=== PATIENT | female | born 1955 | race Caucasian/White ===

== ENCOUNTER 2021-05-28 12:56 | Outpatient (REF) | payer OTHER, SELFPAY ==
--- NOTE | ~2021-05-28 | MM_ITS ---
EXAMINATION: MM SCREENING DIGITAL BREAST TOMOSYNTHESIS, BILATERAL CLINICAL INFORMATION: Screening. Asymptomatic. The lifetime risk of breast cancer based on the Tyrer-Cuzick Model is 5.8%. COMPARISON: Mammography: May 22, 2020 and studies dating back to January 02, 2014 TECHNIQUE: Digital breast tomosynthesis is performed in both the craniocaudal and mediolateral oblique views along with computer-aided detection (CAD). Synthesized 2D images are generated from the tomosynthesis. FINDINGS: There are scattered areas of fibroglandular density (ACR BI-RADS breast composition Category b). There are no significant masses, abnormal calcifications, or other abnormalities. MM/MM tomosynthesis screening BI IMPRESSION: There are no significant changes from prior study. ASSESSMENT: BI-RADS 1: Negative RECOMMENDATION: Routine annual mammography screening. This patient's information was entered into a reminder system with a target due date for their next mammogram.
== END 2021-05-28 12:57 | disposition home or self-care (01) ==
LOC: HO.MAMMO 12:56
PROVIDERS: Visit Provider Nurse Practitioner Family
DX: Z12.31 Encounter for screening mammogram for malignant neoplasm of breast (principal)
CPT/HCPCS: 77063; 77067

== ENCOUNTER 2022-06-01 12:47 | Outpatient (REF) | payer OTHER, SELFPAY ==
--- NOTE | ~2022-06-01 | MM_ITS ---
EXAMINATION: MM SCREENING DIGITAL BREAST TOMOSYNTHESIS, BILATERAL CLINICAL INFORMATION: Screening. Asymptomatic. The lifetime risk of breast cancer based on the Tyrer-Cuzick Model is 5%. COMPARISON: Mammography: 05/28/2021, 05/22/2020, 05/17/2019 TECHNIQUE: Digital breast tomosynthesis is performed in both the craniocaudal and mediolateral oblique views along with computer-aided detection (CAD). Synthesized 2D images are generated from the tomosynthesis. FINDINGS: There are scattered areas of fibroglandular density (ACR BI-RADS breast composition Category b). There are no significant masses, abnormal calcifications, or other abnormalities. No developing density or architectural abnormality. Incidental intramammary node again seen mid 3:00 left breast. The axilla and skin contours are unremarkable. MM/MM tomosynthesis screening BI IMPRESSION: No mammographic evidence of malignancy. ASSESSMENT: BI-RADS 2: Benign RECOMMENDATION: Routine annual mammography screening. This patient's information was entered into a reminder system with a target due date for their next mammogram.
== END 2022-06-01 12:48 | disposition home or self-care (01) ==
LOC: HO.MAMMO 12:47
PROVIDERS: Visit Provider Nurse Practitioner Family
DX: Z12.31 Encounter for screening mammogram for malignant neoplasm of breast (principal)
CPT/HCPCS: 77063; 77067

== ENCOUNTER 2023-06-14 11:55 | Outpatient (REF) | payer OTHER, SELFPAY ==
--- NOTE | ~2023-06-14 | MM_ITS ---
EXAMINATION: MM SCREENING DIGITAL BREAST TOMOSYNTHESIS, BILATERAL CLINICAL INFORMATION: Screening. Asymptomatic. COMPARISON: Mammography: 06/01/2022, 05/28/2021, 05/22/2020, and dating back to 2013. TECHNIQUE: Digital breast tomosynthesis is performed in both the craniocaudal and mediolateral oblique views along with computer-aided detection (CAD). Synthesized 2D images are generated from the tomosynthesis. FINDINGS: There are scattered areas of fibroglandular density (ACR BI-RADS breast composition Category b). There are no suspicious masses, suspicious grouped calcifications, or areas of architectural distortion. The parenchymal pattern is stable from prior exams. There are no skin changes. Stable intramammary lymph nodes in the far lateral bilateral breasts. MM/MM tomosynthesis screening BI IMPRESSION: No mammographic evidence of malignancy. Stable benign findings. ASSESSMENT: BI-RADS BI-RADS 2 - Benign Findings RECOMMENDATION: Routine annual mammography screening. 1 year F/U This examination should not preclude the clinical evaluation of a suspicious palpable abnormality. This patient's information was entered into a reminder system with a target due date for their next mammogram.
== END 2023-06-14 11:56 | disposition home or self-care (01) ==
LOC: HO.MAMMO 11:55
PROVIDERS: PCP Nurse Practitioner Family; Visit Provider Nurse Practitioner Family
DX: Z12.31 Encounter for screening mammogram for malignant neoplasm of breast (principal)
CPT/HCPCS: 77063; 77067

== ENCOUNTER → 2023-06-14 12:30 | Outpatient (BNV) | payer OTHER, SELFPAY | PROVIDERS: PCP Nurse Practitioner Family; Visit Provider Radiology Diagnostic Radiology | DX: Z12.31 Encounter for screening mammogram for malignant neoplasm of breast (principal) | CPT/HCPCS: 77063; 77067 ==

== ENCOUNTER 2024-06-20 10:12 | Outpatient (REF) | payer OTHER, SELFPAY ==
--- NOTE | ~2024-06-20 | MM_ITS ---
EXAMINATION: MM SCREENING DIGITAL BREAST TOMOSYNTHESIS, BILATERAL CLINICAL INFORMATION: Screening. Asymptomatic. COMPARISON: Mammography: Comparison is made with available priors TECHNIQUE: Digital breast mammography with tomosynthesis is performed in both the craniocaudal and mediolateral oblique views along with computer-aided detection (CAD). FINDINGS: There are scattered areas of fibroglandular density (ACR BI-RADS breast composition Category b). There are no significant masses, abnormal calcifications, or other abnormalities. MM/MM tomosynthesis screening BI IMPRESSION: No mammographic evidence of malignancy. ASSESSMENT: BI-RADS BI-RADS 1 - Negative RECOMMENDATION: Routine annual mammography screening. 1 year F/U This examination should not preclude the clinical evaluation of a suspicious palpable abnormality. This patient's information was entered into a reminder system with a target due date for their next mammogram. Electronically signed by: Veronika Zafar DO 07/08/2024 10:39 PM EDT
== END 2024-06-20 10:13 | disposition home or self-care (01) ==
LOC: HO.MAMMO 10:12
PROVIDERS: PCP Nurse Practitioner Family; Visit Provider Nurse Practitioner Family
DX: Z12.31 Encounter for screening mammogram for malignant neoplasm of breast (principal)
CPT/HCPCS: 77063; 77067

== ENCOUNTER → 2024-06-20 10:30 | Outpatient (BNV) | payer OTHER, SELFPAY | PROVIDERS: PCP Nurse Practitioner Family; Visit Provider Internal Medicine | DX: Z12.31 Encounter for screening mammogram for malignant neoplasm of breast (principal) | CPT/HCPCS: 77063; 77067 ==

== ENCOUNTER 2025-06-25 10:05 | Outpatient (REF) | payer OTHER, SELFPAY ==
--- NOTE | ~2025-06-25 | MM_ITS ---
EXAMINATION: MM SCREENING DIGITAL BREAST TOMOSYNTHESIS, BILATERAL CLINICAL INFORMATION: Screening. Asymptomatic. COMPARISON: Mammography: Comparison is made with available priors TECHNIQUE: Digital breast mammography with tomosynthesis is performed in both the craniocaudal and mediolateral oblique views along with computer-aided detection (CAD). FINDINGS: There are scattered areas of fibroglandular density (ACR BI-RADS breast composition Category b). Circumscribed oval probable lymph node in the central outer left breast stable dating back to 2011. There are no significant masses, abnormal calcifications, or other abnormalities. MM/MM tomosynthesis screening BI IMPRESSION: No mammographic evidence of malignancy. ASSESSMENT: BI-RADS BI-RADS 2 - Benign Findings RECOMMENDATION: Routine annual mammography screening. 1 year F/U This examination should not preclude the clinical evaluation of a suspicious palpable abnormality. This patient's information was entered into a reminder system with a target due date for their next mammogram. Electronically signed by: Veronika Zafar DO 06/26/2025 04:41 PM EDT
--- OUTSIDE RECORDS SUMMARY | 2025-06-25 11:53 | XMS_ITS | Clinical Summary ---
Author Organization [facility] [address] [facility] Address [address] [place] [address] Phone Care Team Providers Care Composition Floor Setter Name Role Phone Maria Alba SUPERVISOR PRODUCTION Primary Care Provider [phone] Medications bisacodyL (DULCOLAX) 5 mg EC tablet Take 2 tablets by mouth right before beginning bowel prep. See instructions provided by the office 2 tablet 5 Active polyethylene glycol (Golytely) 236-22.74-6.74 -5.86 gram solution Take 4L by mouth once for one dose. May substitue any PEG. Starting at 6PM the night before your procedure drink 1 8oz glasses at your own pace until you complete half of the gallon. Finish 2nd half of the gallon 5 hours before your procedure. 4000 mL 5 Active Social History Tobacco Use Types Packs/Day Years Used Date Smoking Tobacco: Never Assessed Comments Unknown Sex and Gender Information Value Date Recorded Sex Assigned at Female 10/23/2024 1:50 PM EST Legal Sex Female 11:41 AM EDT Gender Identity Female 10/23/2024 1:50 PM EST Sexual Orientation Straight 10/23/2024 1: 50 PM EST Plan of Treatment Health Maintenance Due Date Last Done Comments Breast Cancer Screening 1955 DTaP,Tdap,and Td Vaccines (1 - Tdap) 02/13/1976 Pneumococcal Vaccine: 50+ Years (1 of 1 - PCV) 2007 Zoster Vaccines (1 of 2) 2007 Falls Risk Assessment 08/12/2024 Hepatitis C Screening 08/12/2024 Osteoporosis Screening (Bone Density Screening) 08/12/2024 Social Influencers of Health Screening 08/12/2024 Depression Screening 10/18/2024 COVID-19 Vaccine (1 - 2023-2 5 season) 2025 Influenza Vaccine (#1) 2025 RSV Immunization Adult Patients (1 - 1-dose 75+ series) 02/13/2032 Colorectal Cancer Screening: Colonoscopy 02/14/2035 02/14/2025, 02/08/2025 HIB Vaccines Aged Out No longer eligi ble based on patient's age to complete this topic HPV Vaccines Aged Out No longer eligi ble based on patient's age to complete this topic Hepatitis A Vaccines Aged Out No long er eligible based on patient's age to complete this topic Hepatitis B Vaccines Aged Out No long er eligible based on patient's age to complete this topic IPV Vaccines Aged Out No longer eligi ble based on patient's age to complete this topic MMR Vaccines Aged Out No longer eligi ble based on patient's age to complete this topic Meningococcal ACWY Vaccine Aged Out N o longer eligible based on patient's age to complete this topic Meningococcal B Vaccine Aged Out No l onger eligible based on patient's age to complete this topic RSV Immunization Patients Under 20 months Aged Out No longer eligible b ased on patient's age to complete this topic Varicella Vaccines Aged Out No longer eligible based on patient's age to complete this topic Procedures Procedure Name Priority Date/Time Associated Diagnosis Comments EXTERNAL COLONOSCOPY REPORT Routine 02/14/2025 11:42 AM EDT from Last 3 Months or Most Recently Relevant to Health Maintenance Results * External Colonoscopy Report (02/14/2025 11:42 AM EDT) Anatomical Region Laterality Modality Endoscopy us Historical Provider GI~PROCEDURE ORDERABLES F inal Result from Last 3 Months or Most Recently Relevant to Health Maintenance Insurance [facility] Care Teams Composition Floor Setter Relationship Specialty Start Date End Date Maria Alba SUPERVISOR PRODUCTION [facility] [address] [place] [id number] PCP - General Family Medicine 10/23/24
--- OUTSIDE RECORDS SUMMARY | 2025-06-25 11:53 | XMS_ITS | Encounter Summary ---
Author Organization [facility] Address [address] [place] [address] Phone Care Team Providers Care Sql Report Analyst Name Role Phone Ashley To ADVERTISING STATISTICAL CLERK Unavailable [phone] Sherlyn Seaman CN Unavailable [phone] Maria Alba ADVERTISING STATISTICAL CLERK Unavailable [phone] Diamond Araiza RDCS Unavailable [email or web address] Cirilo Harden MD Unavailable [phone] Birgit Blue MD Unavailable [phone] Maria Alba ADVERTISING STATISTICAL CLERK Primary Care Provider [phone] Encounter Details Date Type Department Care Team (Late st Contact Info) Description 03/21/2021 Transcribe Orders [facility] Specimen Processing [address] [place] [address] Maria Alba, ADVERTISING STATISTICAL CLERK [address] [place] [address] Social History Tobacco Use Types Packs/Day Years Used Date Smoking Tobacco: Never Smokeless Tobacco: Never Alcohol Use Standard Drinks/Week Comments Yes 0 (1 standard drink = 0.6 oz pur e alcohol) Comments No Sex and Gender Information Value Date Recorded Sex Assigned at Female 08/04/2022 6:44 AM EDT Legal Sex Female 9:53 PM EDT Gender Identity Female 08/04/2022 6:44 AM EDT Sexual Orientation Straight 08/04/2022 6: 44 AM EDT documented as of this encounter Plan of Treatment Not on file documented as of this encounter Visit Diagnoses Not on filedocumented in this encounter Care Teams Sql Report Analyst Relationship Specialty Start Date End Date Maria Alba, ADVERTISING STATISTICAL CLERK [address] [place] [address] PCP - General 10/21/17 Ashley To, ADVERTISING STATISTICAL CLERK Historical LMR Provider 08/04/17 Sherlyn Seaman CNM [address] [address] [email or web address] Historical LMR Provider 08/04/17 Maria Alba ADVERTISING STATISTICAL CLERK [address] [place] [address] Historical LMR Provider 08/04/17 Diamond Araiza, RDCS Historical LMR Provider 08/04/17 10/25/21 Cirilo Harden MD [address] [place] [phone] Historical LMR Provider 08/04/17 2 Birgit Blue MD [address] [place] [address] [email or web address] Historical LMR Provider 08/04/17 10/25/21 documented as of this encounter Additional Source Comments The information contained in this document represents components of the legal health record. It is not the complete legal health record.[facility]
--- OUTSIDE RECORDS SUMMARY | 2025-06-25 11:53 | XMS_ITS | Clinical Summary ---
Author Organization [facility] Address [address] [place] [address] Phone Care Team Providers Care Design Lead Name Role Phone Ashley To COVER MAKER Unavailable [phone] Sherlyn Seaman CNM Unavailable [phone] Maria Alba COVER MAKER Unavailable [phone] Maria Alba COVER MAKER Primary Care Provider Allergies Active Allergy Reactions Criticality Noted Date Comments Penicillins Unknown 01/25/2019 Medications magnesium oxide-Mg AA chelate 300 mg Cap Take 1 capsule by mouth daily. with a meal Active red yeast rice 600 mg Cap Orally Active omega-3 fatty acids 1,000 mg Cap Take 1 capsule by mouth daily. Active cholecalciferol , vitamin D3, 25 mcg (1,000 unit) capsule Take 25 mcg by mouth. 04/28/2022 Active propranoloL (INDERAL) 20 MG immediate release tablet Take 20 mg by mouth 2 (two) times a day. 06/28/2022 Active Active Problems No known active problems Immunizations Immunization Administration Dates Next Due COVID-19 (Pre-08/09) Moderna Vaccine, mRNA, PF 09/08/2021,09/08/2021,12/12/2020,2020,11/14/2020,11/14/2020 Hepatitis A, Adult 11/13/2019 INFLUENZA, SPLIT VIRUS, TRIVALENT PF 07/20/2024 INFLUENZA, SPLIT VIRUS, TRIV ALENT W/ PRESERVATIVE IM 06/25/2016,07/22/2011 Influenza Quadrivalent MDCK Preservative Free IM 07/02/2020 Influenza Quadrivalent Prese rvative Free IM 08/01/2019 Influenza, Unspecified Formulation 08/09,08/10/2022,08/07/2021,2019,09/03/2020 Td, unspecified formulation 11/19/2009 Family History Medical History Relation Comments Lymphoma Brother CV disease Father Hypertension Father Cancer Mother Hypertension Mother Relation Status Comments Brother Alive Father Mother Alive Social History Tobacco Use Types Packs/Day Years Used Date Smoking Tobacco: Never Smokeless Tobacco: Never Alcohol Use Standard Drinks/Week Comments Yes 0 (1 standard drink = 0.6 oz pur e alcohol) Education Answer Date Recorded Are you interested in more education? Not on shantanu e 2023 Are you concerned about learning? Not on file 2023 No 2023 No 2023 Digital Access Answer Date Recorded No 03/13/2023 No 03/13/2023 Reliable internet access at home? Not on file 03/13/2023 Device with a working camera? Not on file Comments No Sex and Gender Information Value Date Recorded Sex Assigned at Female 08/04/2022 6:44 AM EDT Legal Sex Female 9:53 PM EDT Gender Identity Female 08/04/2022 6:44 AM EDT Sexual Orientation Straight 08/04/2022 6: 44 AM EDT Last Filed Vital Signs Vital Sign Reading Time Taken Comments Blood Pressure 108/74 08/04/2022 11:43 AM EDT Pulse - - Temperature - - Respiratory Rate - - Oxygen Saturation - - Inhaled Oxygen Concentration - - Weight 70.3 kg (155 lb) 08/04/2022 11:43 AM EDT Height 155.6 cm (5' 1.25 ) 08/04/2022 11:43 AM E DT Body Mass Index 29.05 08/04/2022 11:43 AM EDT Plan of Treatment Health Maintenance Due Date Last Done Comments LIPID PANEL 1955 DEPRESSION SCREENING 1969 HEPATITIS C SCREENING 1975 SCREENING FOR DIABETES 02/13/1992 MAMMOGRAM 1997 COLOGUARD 2002 COLONOSCOPY 2002 COLORECTAL CANCER SCREENING 2002 FIT TEST 2002 FOBT 2002 SIGMOIDOSCOPY 2002 VIRTUAL COLONOSCOPY 2002 PNEUMOCOCCAL VACCINES (50+ years) (1 of 1 - PCV) 2007 ZOSTER VACCINES (1 of 2) 2007 Adult Td,Tdap Booster 11/19/2019 11/19/2009 OSTEOPOROSIS SCREENING INITIAL (ONE-TIME) 2022 INFLUENZA VACCINE (#1) 2025 , 08/09/2023, 08/10/2022, Additional history exists COVID-19 VACCINE ( season) 2025 09/08/2021, 09/08/2021, 12/12/2020, Additional history exists PAP SMEAR 08/04/2027 08/04/2022, 03/19, 03/09/2015 RSV VACCINE (1 - 1-dose 75+ series) 02/13/2032 HEPATITIS A VACCINES Aged Out 11/13/2019 No long er eligible based on patient's age to complete this topic SMOKING STATUS SCREENING (Once After 26 Yrs) Completed 08/04/2022 HIB VACCINES Aged Out No longer eligi ble based on patient's age to complete this topic MENINGOCOCCAL VACCINES (ACWY) Aged Out No longer eligible based on patient's age to complete this topic MENINGOCOCCAL VACCINES (B) Aged Out N o longer eligible based on patient's age to complete this topic Medical Devices Not on file Procedures Procedure Name Priority Date/Time Associated Diagnosis Comments PAP TEST Routine 08/04/2022 12:00 AM EDT from Last 3 Months or Most Recently Relevant to Health Maintenance Results * Pap Smear (08/04/2022 12:00 AM EDT) 08/04/2022 08/05/2022 8:4 5 AM EDT Narrative SEE NARRATIVE - 08/10/2022 12:59 PM EDT [address] [address] Banquet Cook: Birgit Lim MD BORING MACHINE OPERATOR HELPER Cytology Report FINAL DIAGNOSIS A. PAP SMEAR (SUREPATH) CE: SPECIMEN ADEQUACY: Satisfactory for evaluation; transformation zone present. INTERPRETATION: NEGATIVE FOR INTRAEPITHELIAL LESION OR MALIGNANCY. Electronically Signed Out By: KATIE Che(ASCP) The Pap test is a screening test primarily for squamous cancers and precursors and has associated false-negative and false-positive results. New technologies such as liquid-based preparations may decrease but will not eliminate all false-negative results. Regular sampling and follow-up of unexplained clinical signs and symptoms are recommended to minimize false negative results. PROCEDURES/ADDENDA HPV Testing (Requested) Ordered Date: 08/05/2022 A. PAP SMEAR (SUREPATH) CE: Human Papilloma Virus Test Negative for high-risk human papillomavirus types 16, 18, 45 and the Other high risk probe set (Includes 31, 33, 35, 39, 51, 52, 56, 58, 59, 66, 68) by [facility] [facility] On[facility] HR-HPV analysis. Clinical correlation is advised. This HPV test was performed at [facility], [address] [place] [address]. This test has been FDA approved for SurePath cervical cytology specimens. The accuracy and precision of this test for all other specimen sources has been verified in the Cytopathology Laboratory of the [facility] and has not been cleared or approved by the U.S. Food and Drug Administration. Clinical correlation is advised. CLINICAL HISTORY Date of Last Menstrual Period: Not Provided Menstrual History: Post Menopausal Other Clinical Conditions: Screening Pap SPECIMEN SOURCE A: PAP SMEAR (SUREPATH) CE Patient Name: TIARA NUNEZ : 1955 (Age: 67) Sex: F Institution: [facility] Location: [facility] Date of Collection: 08/04/2022 Date of Reported: 08/10/2022 12:59 Results to: Carmen Gutierrez MSN, BS Carmen Gutierrez COVER MAKER CYTOLOGY ORDERABLES Final Resu lt SEE NARRATIVE from Last 3 Months or Most Recently Relevant to Health Maintenance Insurance [facility] [address] [place], [place] [address] [place], [place] [address] Care Teams Design Lead Relationship Specialty Start Date End Date Maria Alba NP [address] [place] [phone] PCP - General 10/21/17 Ashley To NP Historical LMR Provider 08/04/17 Sherlyn Seaman CNM [address] [place] [phone] [email or web address] Historical LMR Provider 08/04/17 Maria Alba NP [address] [place] [phone] Historical LMR Provider 08/04/17 Additional Source Comments The information contained in this document represents components of the legal health record. It is not the complete legal health record.[facility]
--- OUTSIDE RECORDS SUMMARY | 2025-06-25 11:54 | XMS_ITS | Encounter Summary ---
Author Organization [facility] [place] [address] Care Team Providers Care Lug Breaker And Wire Puller Name Role Phone Maria Alba INSTRUMENT LENS GRINDER APPRENTICE Primary Care Provider [phone] Encounter Details Date Type Department Care Team (Late st Contact Info) Description 02/09/2025 Lab Requisition [facility] [address] [facility] [place] [address] Beverley Ruano MD [address] [place] [address] Encounter for screening for malignant neoplasm of colon Social History Tobacco Use Types Packs/Day Years Used Date Smoking Tobacco: Never Assessed Comments Unknown Sex and Gender Information Value Date Recorded Sex Assigned at Female 10/23/2024 1:50 PM EST Legal Sex Female 11:41 AM EDT Gender Identity Female 10/23/2024 1:50 PM EST Sexual Orientation Straight 10/23/2024 1: 50 PM EST documented as of this encounter Progress Notes * Beverley Ruano MD - 02/09/2025 8:26 AM EDT The small colon polyp that was removed was precancerous. Repeat colonoscopy in 5 years. documented in this encounter Plan of Treatment Not on file documented as of this encounter Procedures Procedure Name Priority Date/Time Associated Diagnosis Comments TISSUE EXAM Routine 02/08/2025 Encounter for screening for malignant neoplasm of colon documented in this encounter Results * Tissue Exam (02/08/2025) Final Diagnosis Colon, transverse, polyp: Tubular adenoma. 2025 11:27 AM EDT [facility] Clinical Information Screening in patient at increased risk:family history of 1st degree relative with colorectal cancer 2025 11:27 AM EDT [facility] Gross Description A. Colon, transverse polyp: Labeled transverse polyp . Received in formalin are four irregular baldwin mucosal tissue fragments, each measuring less than 0.1 cm in greatest dimension, which are wrapped in paper and submitted in toto in one cassette, four pieces, multiple levels on one slide. CLARISA 2025 11:27 AM EDT [facility] Disclaimer Unless otherwise specified, all tissue is 10% NB formalin fixed and paraffin embedded. 2025 11:27 AM EDT [facility] Tissue Colon structure / Unknown 02/08/2025 02/09/2025 8:28 AM EDT us Beverley Ruano MD LAB PATHOLOGY ORDERABLES Final Result [facility] [address] [place] [address], documented in this encounter Visit Diagnoses Diagnosis Encounter for screening for malignant neoplasm of colon documented in this encounter Care Teams Lug Breaker And Wire Puller Relationship Specialty Start Date End Date Maria Alba NP [facility] [address] [place] [id number] PCP - General Family Medicine 10/23/24 documented as of this encounter
== END 2025-06-25 10:06 | disposition home or self-care (01) ==
LOC: HO.MAMMO 10:05
PROVIDERS: Visit Provider Nurse Practitioner Family
DX: Z12.31 Encounter for screening mammogram for malignant neoplasm of breast (principal)
CPT/HCPCS: 77063; 77067

== ENCOUNTER → 2025-06-25 10:15 | Outpatient (BNV) | payer OTHER, SELFPAY | PROVIDERS: Visit Provider Internal Medicine | DX: Z12.31 Encounter for screening mammogram for malignant neoplasm of breast (principal) | CPT/HCPCS: 77063; 77067 ==